=== PATIENT | female | born 1950 | race Caucasian/White ===

== ENCOUNTER → 2017-03-21 | Outpatient (CLI) | payer MEDICARE, MEDICAID ==
[~2017-03-21] MED LIST: ASPIRIN 81MG TA81 MG PO; ATIVAN1 MG PO; CITALOPRAM HYDR20 MG PO; FIORICET1 CAP PO; IMITREX50 MG PO; LORAZEPAM1 MG/TABLE PO; MEDROL DOSEPAK4 MG PO; MOTRIN 600MG.600 MG PO; MOTRIN800 MG PO; PREDNISONE 20MG20 MG PO; ROBAXIN 500 MG500 MG PO; SIMVASTATIN20 MG PO; TESSALON PERLE100 MG PO; TRAZADONE HYDR100 MG PO; VALIUM 5MG TABLE5 MG PO; VENLAFAXINE HYD75 M1 PO; VISTARIL25 M1 PO; ZITHROMAX Z PA250 MG PO
--- NOTE | 2017-03-22 09:48 | RADIOLOGY REPORT PS360 ---
MRI-L-SPINE W/O, MRI-3D RENDERING/MYELOGRAM HISTORY: Low back pain with left leg pain and numbness and tingling LUMBAR DDD ORDERING PHYSICIAN: Candida Thompson MD PATIENT AGE: 66 years COMPARISON: Radio graphs of 03/14/2017 TECHNIQUE: Standard multiplanar multiecho sequences are performed without contrast. 3-D MIP and myelographic images are also rendered and reviewed FINDINGS: There is normal alignment. The spinal cord ends at the L1 level. T10-T11: Degenerative disc disease with mild concentric bulging disc with bilateral lateral recess and foraminal narrowing. T11-T12: Degenerative disc disease with decreased T1 and T2 signal along the anterior superior aspect of T12 vertebral body consistent with an area of sclerosis. T12-L1 unremarkable. L1-L2: Degenerative disc disease with bulging disc slightly eccentric towards the left and type I endplate changes. Facet and ligamentum flavum hypertrophy is present with moderate bilateral lateral recess and foraminal narrowing greater on the left. There is borderline transverse canal stenosis L2-L3: Degenerative disc disease with bulging disc with moderate to severe facet and ligamentum hypertrophy. There is moderate to severe left-sided foraminal narrowing with some impingement upon the exiting left L2 nerve root. There is severe canal stenosis at this level. There are type I endplate changes. L3-L4: Degenerative disc disease with bulging disc along with a small broad-based left paracentral disc protrusion with associated facet and ligamentum flavum hypertrophy with severe canal stenosis. There is severe bilateral lateral recess narrowing. There is impingement upon the left L4 nerve root from the small disc protrusion and lateral recess narrowing. L4-L5: Severe degenerative disc disease with bulging disc with facet and ligamentum hypertrophy and transverse canal stenosis with moderate to severe right-sided foraminal narrowing and [id number] left foraminal narrowing. L5-S1: Severe degenerative disc disease with bulging disc along with facet and ligamentum flavum hypertrophy with moderate to severe bilateral foraminal narrowing. No obvious extruded herniated disc. IMPRESSION: 1. Abnormal MRI of the lumbar spine with severe spondylosis with multilevel degenerative disc disease, bulging disc, facet and ligamentum flavum hypertrophy with areas of severe canal stenosis and severe lateral recess and foraminal narrowing as detailed at each level above. Please see above for detailed description at each level.
== END ==
LOC: RAD 14:41
DX: M51.36 Other intervertebral disc degeneration, lumbar region (principal)

== ENCOUNTER 2017-07-30 18:53 | Emergency (ER) | payer MEDICARE, MEDICAID ==
[~2017-07-30] VITALS: Ht 165.1 cm; Wt 62.8 kg
[~2017-07-30 18:53] MED LIST changes: +AZITHROMYCIN PO; +CEFDINIR 300MG300 MG PO; +CELEXA10 MG PO; -CITALOPRAM HYDR20 MG PO; +GUAIFENESIN AN118 ML PO; +ISOSORBIDE MONO30 MG PO; +LINZESS145 MCG PO; +METOPROLOL SUCC25 M2 PO; +NITROGLYCERIN0.4 MG SL; +SEROQUEL 25MG T25 MG PO; -VENLAFAXINE HYD75 M1 PO; +VENLAFAXINE HYD75 M2 PO; +ZITHROMAX TRI-500 M1 PO
--- OUTSIDE RECORDS SUMMARY | 2017-07-30 18:56 | External Medical Summary Rpt | CCD ---
Author Author , NOE LIU Address Unknown Phone [email or web address] Purpose Continuity of Care Document - 07-28-2017 through 2016 Problems Code Diagnosis DOS Provider Status J18.1 LOBAR PNEUMONIA, UNSPECIFIED ORGANISM J40 BRONCHITIS, NOT SPECIFIED ACUTE OR CHRONIC M51.36 OTHER INTERVERTEB RAL DISC DEGENERATIO N, LUMBAR REGION R07.89 OTHER CHEST PAIN R07.9 CHEST PAIN, UNSPECIFIED R51 HEADACHE R53.1 WEAKNESS Results Labs Lab Lab Date Result Refere Interp Status Commen Order Detail nces retati t Range on Blood lactic acid measurement (moles/vol (07-28-2017 10:10) Blood = 0.8 0.4-2.0 complet lactic 017 mmol/L ed acid 10:10 measure ment (moles/ vol CBC w auto diff (07-28-2017 09:30) Automat = 0.1 0-0.2 complet ed 017 K/MM3 ed blood 09:30 basophi l count (count/ vo Baso % = 0.6 % 0.1-2.0 complet 017 ed 09:30 Automat = 0.3 0.0-0.4 complet ed 017 K/mm3 ed blood 09:30 eosinop hil count Automat = 3.2 % 0.1-12. complet ed 017 0 ed blood 09:30 eosinop hils/10 0 leukocy t Blood = 6.1 1.8-7.8 complet granulo 017 K/mm3 ed cytes 09:30 automat ed count (numb Granulo = 70.9 37.0-80 complet cyte 017 % .0 ed percent 09:30 age Blood = 36.6 37.0-47 complet hematoc 017 % .0 ed rit 09:30 (volume fractio n) Blood = 12.0 12.2-16 complet hemoglo 017 g/dL .2 ed bin 09:30 measure ment (mass/v olum Absolut = 1.6 0.7-4.5 complet e 017 K/mm3 ed lymphoc 09:30 yte count Lymphoc = 18.5 10-50.0 complet yte 017 % ed count, 09:30 blood, automat ed Mean = 31.1 27-31.2 complet corpusc 017 pg ed ular 09:30 hemoglo bin ([facility]) determ Automat = 32.9 31.8-35 complet ed 017 g/dl .4 ed erythro 09:30 cyte mean corpusc ular h Automat = 94.5 82.2-97 complet ed 017 fl .8 ed erythro 09:30 cyte mean corpusc ular v Absolut = 0.6 0.1-1.0 complet e 017 K/mm3 ed monocyt 09:30 e count [place] % = 6.9 % 1.7-9.3 complet 017 ed 09:30 Automat = 7.8 7.4-10. complet ed 017 fl 4 ed blood 09:30 platele t mean volume [place] Blood = 213 142-424 complet platele 017 K/mm3 ed t count 09:30 Red = 3.87 4.2-5.4 complet blood 017 M/mm3 ed cell 09:30 count Automat = 12.8 11.5-17 complet ed 017 % .5 ed erythro 09:30 cyte distrib ution width Blood = 8.6 4.8-10. complet leukocy 017 K/MM3 8 ed jnog 09:30 count (number /volume ) Comprehensive metabolic panel (07-28-2017 09:30) Serum = 3.5 3.4-5.0 complet or 017 gm/dL ed plasma 09:30 albumin measure ment (mas Serum = 94 46-116 complet or 017 U/L ed plasma 09:30 alkalin e phospha tase [place] Serum 11-02-2 = 0.2 0.2-1.0 complet or 017 mg/dL ed plasma 09:30 total bilirub in measure m Serum = 16 7-18 complet or 017 mg/dL ed plasma 09:30 urea nitroge n measure men Serum = 8.7 8.5-10. complet or 017 mg/dL 1 ed plasma 09:30 calcium measure ment (mas Serum = 106 98-107 complet or 017 mmoL/L ed plasma 09:30 chlorid e measure ment (mo Carbon = 26 21.0-32 complet dioxide 017 mmoL/L .0 ed 09:30 measure ment Serum = 0.7 0.55-1. complet or 017 mg/dL 02 ed plasma 09:30 creatin ine measure ment ( Estimat = 80 50-200 complet ion of 017 ML/MIN ed creatin 09:30 ine renal clearan ce Estimat = 84 59- complet ed 017 ML/MIN ed glomeru 09:30 lar filtrat ion rate (GF Comment: REFERENCE RANGE: >60 ML/MIN/1.73 SQUARE METERS Comment: If this patient is -[place], then multiply the Comment: result by 1.210. Serum = 3.2 1.3-3.2 complet globuli 017 gm/dL ed n 09:30 measure ment (mass/v olume) Serum = 101 74-106 complet or 017 mg/dL ed plasma 09:30 glucose measure ment (mas Serum = 3.5 3.5-5.1 complet potassi 017 mmoL/L ed um 09:30 measure ment Serum = 140 136-145 complet sodium 017 mmoL/L ed measure 09:30 ment Serum = 18 15-37 complet or 017 U/L ed plasma 09:30 asparta te aminotr ansfera ALT = 19 12-78 complet (SGPT) 017 U/L ed ser/yoni 09:30 s Protein = 6.7 6.4-8.2 complet total 017 gm/dL ed ser/yoni 09:30 s Serum = 1.1 1.1-1.8 complet or 017 ed plasma 09:30 albumin /globul in mass ra Serum or plasma thyroid stimulating horm (07-28-2017 09:30) Serum = 1.85 0.358-3 complet or 017 uIU/ml .740 ed plasma 09:30 thyroid stimula ting horm Influenza A and B virus antigen assay (07-28-2017 09:20) Influen NOT NOT complet za A ag 017 DETECTE DETECTD ed QL 09:20 D NOT DETECTE D L Influen NOT NOT complet za 017 DETECTE DETECTD ed virus B 09:20 D NOT DETECTE antigen D L detecti on Comment:
--- OUTSIDE RECORDS SUMMARY | 2017-07-30 18:56 | External Medical Summary Rpt | CCD ---
Author Author , NOE LIU Address Unknown Phone [email or web address] Purpose Continuity of Care Document - 07-28-2017 [...] 017 K/mm3 ed monocyt 09:30 e count [place] % = 6.9 % 1.7-9.3 complet 017 [...] 4.8-10. complet leukocy 017 K/MM3 8 ed jong 09:30 count (number /volume ) Comprehensive metabolic [...] SQUARE METERS Comment: If this patient is -[place], then multiply the Comment: result by 1.210. [...]
--- OUTSIDE RECORDS SUMMARY | 2017-07-30 18:58 | External Medical Summary Rpt | CCD ---
Demographics Preferred Language Romansh Marital Status Unknown Jainism Affiliation Unknown Race Unknown Ethnic Group Unknown Author Author , NOE LIU Address Unknown Phone Immunization Unable to retrieve immunization data due to connection failure with Immunization Registry. Please try again later.
--- OUTSIDE RECORDS SUMMARY | 2017-07-30 18:58 | External Medical Summary Rpt | CCD ---
Demographics Preferred Language Amharic Marital Status Unknown Nondenominational Affiliation Unknown Race Unknown Ethnic Group Unknown Author Author , NOE LIU Address Unknown Phone Immunization Unable to retrieve immunization data due to connection failure with Immunization Registry. Please try again later.
--- NOTE | 2017-07-30 19:06 | Urgent Treatment Center Report ---
History of Present Issue Date/Time Seen by Provider 07/30/17 1905 Visit Reason Pt arrived:Walked Presenting Problem:PT STATES SHE WAS SEEN HERE TUESDAY FOR A RESPIRATORY INFECTION AND IS NOW FEELING WORSE Location if Accident: Onset of symptoms date/time:/ or onset unknown for:MEDICAL HX UNKNOWN Have you (or family members/close friends) recently traveled outside the [place]? N If Yes, where/when: Have you had exposure to infectious disease within the past month? TB? Other? Specify: Patient states that she was seen here on and started on Azithromycin for Respiratory infection State that she is still having coughing and thinks she may need something to help with her cough. States that she is having a hard time sleeping at night due to the cough and it is making her feel worse. ALLERGIES Coded Allergies: Penicillins (04/16/16) Uncoded Allergies: RED KIDNEY DYE (Mild, 07/31/16) Home Medications Active Scripts GUAIFENESIN/CODEINE PHOSPHATE (ROBITUSSIN AC (Generic) Syrup) 5 ML PO Q6HP PRN cough #120 ML Prov: 04/03/17 Azithromycin 1 GM PO DAILY #6 PKT Prov: 07/28/17 Reported Medications Lorazepam (Lorazepam 1MG) 1 MG PO QHS IBUPROFEN (Motrin 600MG) 600 MG PO TIDP PRN PAIN Simvastatin 20 MG PO QHS #30 Trazodone Hcl (Trazodone HCl) 100 MG PO QHSP PRN SLEEP #30 VENLAFAXINE HCL (Venlafaxine HCl ER) 75 MG PO TID CITALOPRAM HYDROBROMIDE (Citalopram HBr) 10 MG PO DAILY ASPIRIN (Aspirin) 81 MG PO DAILY Metoprolol Succinate 25 MG PO DAILY #30 Linaclotide (Linzess 145MCG) 145 MCG PO DAILY #30 Isosorbide Mononitrate (Isosorbide Mononitrate ER) 30 MG PO DAILY NITROGLYCERIN (Nitrostat) 0.4 MG SL [id number] PRN CHEST PAIN Quetiapine Fumarate (Seroquel 25MG) 25 MG PO NIGHT ONLY History Medical History General CAD? Yes Angina: No DC: No Hypertension? No Hyperlipidemia? Yes CHF? No DVT? No PE? No COPD? No Asthma? No Anemia? No GERD? No Gastric ulcers? No GI Bleed? No Hernia? Yes Thyroid Problems? No Hypothyroidism? No CVA? No Seizures? No Diabetes? No Insulin Dependent: No Insulin Pump: No Home FSBS? No Renal Insuffiency? No UTI? No Stones? No BPH? No GB Disease: Yes Nephritic Syndrome? No Asplenia? No Hepatitis? No Sickle Cell Disease? No Arthritis? Yes Migraines? No Cataracts? No Glaucoma? No MRSA? No HIV? No TB? No Anxiety? Yes Depression? Yes Cancer? No More? Yes Additional hx: FIBROMYAGLIA Immunization HX DT/Tetanus 5-10 Years Ago Flu 2015-16FSN Pneumonia Received In Past Surgical Hx Previous Surgery?Y GALLBLADDER TUBAL 75 HEART VALVE RIGHT TOES Family History Family HX Diabetes No CAD Yes Hypertension Yes Hyperlipidemia Yes Cancer Yes TB No Social History Smoking Hx Smoker: Current Some Day Smoker Tobacco: Yes Type Cigarettes Packs/day < 1 Pack Alcohol Alcohol: No Review of Systems All Other Systems Reviewed and Negative Respiratory cough, denies shortness of breath, denies stridor, denies wheezing Physical Exam Vital Signs Vital Signs Date Time Temp Pulse Resp B/P Pulse O2 O2 Flow FiO2 Ox Delivery Rate 07/30 1900 97.9 94 18 157/89 96 General Appearance normal appearance, WD/WN, no apparent distress Respiratory Status Yes: trachea midline, chest symmetrical, non tender chest, non productive cough. No: respiratory distress. Cardiovascular normal exam, regular rate/rhythm Neurologic alert, normal exam, oriented x 3 Medical Decision Making LABS/Meds/Orders Pt receiving controlled substance in ED? No Results/Orders Current Medication Orders Sig/Maggie Start time Last Medication Dose Route Stop Time Status Admin Methylprednisolone 125 MG ONCE ONE 07/30 1930 DC 07/30 Sodium Succinate IM 07/30 Methylprednisolone 0 .STK-MED ONE 07/30 1925 DC Sodium Succinate .ROUTE Progress [facility] Progress Notes Comment recommended to patient that we repeat CXR advised that she just had one done 2 days ago and didn't want to have it repeated that if this didn't help her to feel better she would go see family doctor on Tuesday Departure Departure Time of Disposition 1922 Disposition DC Home or Self Care(routine) Clinical Impression Primary Impression: Cough Condition STABLE Referrals Candida Thompson MD (Family): 2 Days-Call Office If no improvement or worsening of symptoms Patient Instructions Cough, DI for Cough -- Adult Additional Instructions * Monitor Temp. Tylenol and/or Ibuprofen as needed. ER if fever is no less than 101 despite alternating Tylenol and Ibuprofen * Encourage fluids, water, Gatorade, powerade, pedialyte if infant/toddler/or child * Warm salt water gargles for throat irritation *Warm fluids *Sore throat lozenges *Sleep elevated *humidifier or vaporizer Lots of rest Increase fluids, water, Gatorade, powerade Take medication as prescribed Drink plenty of water to help thin secretions, Only take Tessalone Perrles at night and cough during the day these will help to control your cough so you can rest Follow up with family doctor if no improvement Discharge Counseling Counseled pt/family regarding diagnosis, medications/RX, home care, follow up needs Prescriptions Current Visit Scripts Albuterol Sulfate (Proair Hfa) 2 PUFFS IH Q6HP PRN soa #1 INH Ref 1 Fluticasone Propionate (Flonase 50 Mcg Nasal [place]) 2 SPRAY NA DAILY #1 BOT Benzonatate (Tessalon Perle) 100 MG PO TID #15 SGL at 1943
[2017-07-30] MEDS ORDERED: FLONASE 50 MCG16 GM (19:33)
[2017-07-30] MEDS ORDERED: TESSALON PERLE100 M1 PO (19:33)
[2017-07-30] MEDS ORDERED: PROAIR HFA0.09 MG/AC IH (19:33)
[2017-07-30 19:51] VITALS: BP 157/89
== END 2017-07-30 19:51 | disposition home or self-care (01) ==
LOC: UTC 18:53
DX: R05 Cough (principal); Z88.0 Allergy status to penicillin; I25.10 Atherosclerotic heart disease of native coronary artery without angina pectoris; F41.8 Other specified anxiety disorders; M79.7 Fibromyalgia; F17.210 Nicotine dependence, cigarettes, uncomplicated